=== PATIENT | female | born 1955 | race Caucasian/White ===

== ENCOUNTER → 2016-11-24 | Outpatient (CLI) | payer MEDICAID ==
[~2016-11-24] MED LIST: Gadobutrol 10 mMOL/10 ML SDV IVPUSH STA
--- NOTE | 2016-11-26 16:53 | MR ---
EXAM DATE: 11/24/16 PATIENT'S AGE: 61 Patient: JASON FLYNN Facility: [facility] Site . Site : 1955 Study: MRI-Head W/ and W/O Cont [id number]/28/2017 7:49:23 PM Ordering Physician: Bette Joseph Final Report: Indication: 61-year-old female. Multiple sclerosis. Technique: Multiplanar T1 weighted, multiplanar FLAIR, T2 axial, diffusion axial, ADC map axial, susceptibility weighted axial and 3 plane volumetric postcontrast T1 weighted images are acquired. Comparison: MRI April 09, 2016. Findings: There is no restricted diffusion. There is a small focus of susceptibility in the left lentiform nucleus. Ventricles and cortical sulci are mildly prominent. There are greater than 10 white matter foci of T2 prolongation in the cerebral hemispheres with juxta cortical, deep and periventricular lesions present. There is no pathologic signal within the septocallosal interface. Few foci of T2 prolongation are present in the nils. Cerebellar hemispheres are unremarkable. Cerebellar tonsils are normally situated. Optic chiasm and pituitary are normal. Paranasal and mastoid air cells are clear. Usual flow void is present in the [place]. Intraorbital tissues are normal. Impression: 1. No change. 2. Greater than 10 white matter foci of T2 prolongation within the cerebral hemispheres and brainstem. Pattern of signal abnormality is compatible with combination of demyelinating disease and age-related microvascular ischemic disease. Periventricular lesions with mild white matter T1 burden have features compatible with multiple sclerosis. 3. Mild atrophy without central atrophy or pathologic thinning of the corpus callosum. 4. Intracranial enhancement pattern is normal without evidence for active dilatation. 5. Focal susceptibility in the left basal ganglia is compatible with normal acquired benign mineralization. Dictated by Cristobal Alvarado MD @ Nov 26 2016 1:49PM Signed by: Cristobal Alvarado MD @11/26/2016 2:00:38 PM (Electronic Signature) Report Signed by Proxy and Original Signed Document filed in the Medical Record. MTDD
== END | disposition home or self-care (01) ==
LOC: MW.MRI 17:41
PROVIDERS: ATTEND Psychiatry & Neurology Neuromuscular Medicine
DX: G35 Multiple sclerosis (principal)
CPT/HCPCS: 36415; 70553; 82565; 84520; A9585

== ENCOUNTER 2016-12-21 13:25 | Emergency (ER) | payer MEDICAID ==
[2016-12-21] MEDS ORDERED: Ondansetron 4 MG/2 ML SDV IVPUSH ONE (13:39)
[2016-12-21] MEDS ORDERED: Sodium Chloride 0.9% 1,000 ML IV ONE (13:39)
[2016-12-21] MEDS ORDERED: SUMAtriptan 6 MG/0.5 ML SDV SUBCUT ONE (13:39)
[2016-12-21] MEDS ORDERED: Ketorolac 30 MG/ML SDV IVPUSH ONE (13:39)
[2016-12-21] MEDS ORDERED: LORazepam 2 MG/ML MDV IVPUSH ONE (13:41)
--- NOTE | 2016-12-21 13:41 | EDM.PDOC ---
ED HPI HEADACHE COMPLAINT - General Chief Complaint: Headache Stated Complaint: HEADACHE Time Seen by Provider: 12/21/16 13:33 Source of Information: Reports: Patient History Limitations: Reports: No limitations - History of Present Illness INITIAL COMMENTS - FREE TEXT/NARRATIVE: History of present illness: [61-year-old female coming in complaining of headache. Patient indicates she does report my as well as MS. Patient indicates her migraine frequency has increased to 3 times a week her neurologist Dr. Amos's awareness is wanting her to take a migraine diary and they're going to evaluate her to see if this is in fact an exacerbation of her MS as opposed to a migraine syndrome.] Review of systems: As per history of present illness and below otherwise all systems reviewed and negative. Past medical history: As per history of present illness and as reviewed below otherwise noncontributory. Surgical history: As per history of present illness and as reviewed below otherwise noncontributory. Social history: No reported history of drug or alcohol abuse. Family history: As per history of present illness and as reviewed below otherwise noncontributory. Physical exam: HEENT: Atraumatic, normocephalic, pupils reactive, negative for conjunctival pallor or scleral icterus, mucous membranes moist, throat clear, neck supple, nontender, trachea midline. Lungs: Clear to auscultation, breath sounds equal bilaterally, chest nontender. Heart: S1S2, regular, negative for clicks, rubs, or JVD. Abdomen: Soft, nondistended, nontender. Negative for masses or hepatosplenomegaly. Negative for costovertebral tenderness. Pelvis: Stable nontender. Genitourinary: Deferred. Rectal: Deferred. Extremities: Atraumatic, negative for cords or calf pain. Neurovascular unremarkable. Neuro: Awake, alert, oriented. Cranial nerves II through XII unremarkable. Cerebellum unremarkable. Motor and sensory unremarkable throughout. Exam nonfocal. Patient's global assessment was benign save for photophobia and clear level of discomfort Is some dark room placed on 2 L o2- medication given Diagnostics: [] Therapeutics: [IV, Zofran, Imitrex, Toradol, lorazepam] Impression: [Migraine] Plan: [Followup with Dr. Amos] Definitive disposition and diagnosis as appropriate pending reevaluation and review of above. - Related Data Allergies/ADRs: Allergies Allergy/AdvReac Type Severity Reaction Status Date / Time tetracycline Allergy Rash Verified 03/28/16 12:31 Home Meds: Home Meds Atenolol 50 mg PO DAILY 03/28/16 [History] Cholecalciferol (Vitamin D3) [Vitamin D3] 1,000 unit PO DAILY 03/28/16 [History] Citalopram Hydrobromide [Celexa] 40 mg PO DAILY 03/28/16 [History] ClonazePAM [KlonoPIN] 0.5 mg PO BEDTIME 03/28/16 [History] Docusate Sodium [Colace] 100 mg PO BID 03/28/16 [History] Estradiol 1 mg PO DAILY 03/28/16 [History] Glatiramer Acetate [Copaxone] 40 mg SQ .3 TIMES A WEEK 03/28/16 [History] Hydrocodone/Acetaminophen [Hydrocodon-Acetaminoph 7.5-325] 1 - 2 tab PO Q4H PRN 03/28/16 [History] Lisinopril 30 mg PO DAILY 03/28/16 [History] Melatonin/Pyridoxine HCl (B6) [Melatonin 3 mg Tablet] 1 each PO BEDTIME [History] Simvastatin [Zocor] 20 mg PO BEDTIME 03/28/16 [History] Solifenacin Succinate [Vesicare] 10 mg PO BID 03/28/16 [History] Past Medical History HEENT History: Reports: None Cardiovascular History: Reports: High cholesterol, Hypertension Respiratory History: Reports: None Genitourinary History: Reports: Other (see below) Other Genitourinary History: leaky bladder Neurological History: Reports: CVA, MS Psychiatric History: Reports: None Endocrine/Metabolic History: Reports: None Hematologic History: Reports: None Immunologic History: Reports: None Oncologic (Cancer) History: Reports: None Dermatologic History: Reports: None - Infectious Disease History Infectious Disease History: Reports: Chicken pox, Measles, Mumps - Past Surgical History Head Surgeries/Procedures: Reports: None GI Surgical History: Reports: Cholecystectomy Female Surgical History: Reports: Hysterectomy Social & Family History - Family History Family Medical History: Noncontributory - Tobacco Use Smoking Status *Q: Current Every Day Smoker Years of Tobacco use: 40 Packs/Tins Daily: 1 - Caffeine Use Caffeine Use: Reports: Coffee, Soda - Recreational Drug Use Recreational Drug Use: No ED ROS GENERAL - Review of Systems Review Of Systems: See Below (See history of present illness) - Physical Exam Exam: See Below (See history of present illness) Course - Vital Signs Last Recorded V/S: Last Vital Signs Temp 36.9 C 12/21/16 13:32 Pulse 70 12/21/16 13:32 Resp 20 12/21/16 13:32 BP 136/58 L 12/21/16 13:32 Pulse Ox 99 12/21/16 13:32 - Orders/Labs/Meds Meds: Medications Discontinued Medications Generic Name Dose Route Start Last Admin Trade Name Freq PRN Reason Stop Dose Admin Sodium Chloride 1,000 mls @ 999 mls/hr 12/21/16 13:39 12/21/16 13:50 Normal Saline IV 12/21/16 14:39 999 mls/hr STAT ONE Administration Ketorolac Tromethamine 30 mg 12/21/16 13:39 12/21/16 13:51 Toradol IVPUSH 12/21/16 13:40 30 mg ONETIME ONE Administration Lorazepam 2 mg 12/21/16 13:41 12/21/16 13:50 Ativan IVPUSH 12/21/16 13:42 2 mg ONETIME ONE Administration Ondansetron HCl 8 mg 12/21/16 13:39 12/21/16 13:51 Zofran IVPUSH 12/21/16 13:40 8 mg ONETIME ONE Administration Sumatriptan Succinate 6 mg 12/21/16 13:39 12/21/16 13:51 Imitrex SUBCUT 12/21/16 13:40 6 mg ONETIME ONE Administration Departure - Departure Time of Disposition: 14:58 Disposition: Home, Self-Care 01 Condition: good Clinical Impression: Migraine Forms: ED Department Discharge Additional Instructions: The following information is given to patients seen in the emergency department who are being discharged to home. This information is to outline your options for follow-up care. We provide all patients seen in our emergency department with a follow-up referral. The need for follow-up, as well as the timing and circumstances, are variable depending upon the specifics of your emergency department visit. If you don't have a primary care physician on staff, we will provide you with a referral. We always advise you to contact your personal physician following an emergency department visit to inform them of the circumstance of the visit and for follow-up with them and/or the need for any referrals to a consulting specialist. The emergency department will also refer you to a specialist when appropriate. This referral assures that you have the opportunity for follow-up care with a specialist. All of these measure are taken in an effort to provide you with optimal care, which includes your follow-up. Under all circumstances we always encourage you to contact your private physician who remains a resource for coordinating your care. When calling for follow-up care, please make the office aware that this follow-up is from your recent emergency room visit. If for any reason you are refused follow-up, please contact the [facility] Emergency Department at and asked to speak to the emergency department charge nurse. Take medication as directed Followup with urologist as Turned ED as needed as discussed
[2016-12-21 15:08] VITALS: BP 110/59
== END 2016-12-21 15:07 | disposition home or self-care (01) ==
LOC: MW.ED 13:25
DX: G43.909 Migraine, unspecified, not intractable, without status migrainosus (principal); E78.00 Pure hypercholesterolemia, unspecified; I10 Essential (primary) hypertension; F17.210 Nicotine dependence, cigarettes, uncomplicated; Z86.73 Personal history of transient ischemic attack (TIA), and cerebral infarction without residual deficits; Z79.899 Other long term (current) drug therapy; Z90.49 Acquired absence of other specified parts of digestive tract; Z90.710 Acquired absence of both cervix and uterus; Z88.1 Allergy status to other antibiotic agents
CPT/HCPCS: 96361; 96372; 96374; 96375; 99283; J1885; J2060; J2405; J3030; J7040; 99284

== ENCOUNTER 2017-01-18 14:13 | Emergency (ER) | payer MEDICAID ==
[2017-01-18] MEDS ORDERED: Ketorolac 30 MG/ML SDV IVPUSH ONE (15:21)
[2017-01-18] MEDS ORDERED: LORazepam 2 MG/ML MDV IVPUSH ONE (15:21)
[2017-01-18] MEDS ORDERED: Ondansetron 4 MG/2 ML SDV IVPUSH ONE (15:21)
[2017-01-18] MEDS ORDERED: Sodium Chloride 0.9% 1,000 ML IV ONE (15:21)
--- NOTE | 2017-01-18 15:21 | EDM.PDOC ---
ED HPI GENERAL MEDICAL PROBLEM - General Chief Complaint: Headache Stated Complaint: MIGRANE Time Seen by Provider: 01/18/17 15:10 Source of Information: Reports: Patient History Limitations: Reports: No Limitations - History of Present Illness INITIAL COMMENTS - FREE TEXT/NARRATIVE: History of present illness: [61-year-old female presenting with acute migraine. Patient indicates that this is consistent with her normal migraines it is not worse than her average migraine but that in fact she is out of her Imitrex and so the migraine has gotten out of control. Patient indicates when they do get this bad the only way to get them to calm down and/or resolved is to come to ED and have them be addressed by us.] Review of systems: As per history of present illness and below otherwise all systems reviewed and negative. Past medical history: As per history of present illness and as reviewed below otherwise noncontributory. Surgical history: As per history of present illness and as reviewed below otherwise noncontributory. Social history: No reported history of drug or alcohol abuse. Family history: As per history of present illness and as reviewed below otherwise noncontributory. Physical exam: HEENT: Atraumatic, normocephalic, pupils reactive, negative for conjunctival pallor or scleral icterus, mucous membranes moist, throat clear, neck supple, nontender, trachea midline. Lungs: Clear to auscultation, breath sounds equal bilaterally, chest nontender. Heart: S1S2, regular, negative for clicks, rubs, or JVD. Abdomen: Soft, nondistended, nontender. Negative for masses or hepatosplenomegaly. Negative for costovertebral tenderness. Pelvis: Stable nontender. Genitourinary: Deferred. Rectal: Deferred. Extremities: Atraumatic, negative for cords or calf pain. Neurovascular unremarkable. Neuro: Awake, alert, oriented. Cranial nerves II through XII unremarkable. Cerebellum unremarkable. Motor and sensory unremarkable throughout. Exam nonfocal. Global assessment is benign save some notable photophobia and/or guarding. Diagnostics: [] Therapeutics: [Migraine workup plus Imitrex subcutaneous] Impression: [migraine] Plan: [Followup with neurology] Definitive disposition and diagnosis as appropriate pending reevaluation and review of above. Headache behind right eye Pain Score (Numeric/FACES): 7 - Related Data Allergies Allergy/AdvReac Type Severity Reaction Status Date / Time tetracycline Allergy Rash Verified 01/18/17 14:30 Home Meds: Home Meds Atenolol 50 mg PO DAILY 03/28/16 [History] Cholecalciferol (Vitamin D3) [Vitamin D3] 1,000 unit PO DAILY 03/28/16 [History] Citalopram Hydrobromide [Celexa] 40 mg PO DAILY 03/28/16 [History] ClonazePAM [KlonoPIN] 0.5 mg PO BEDTIME 03/28/16 [History] Docusate Sodium [Colace] 100 mg PO BID 03/28/16 [History] Estradiol 1 mg PO DAILY 03/28/16 [History] Glatiramer Acetate [Copaxone] 40 mg SQ .3 TIMES A WEEK 03/28/16 [History] Hydrocodone/Acetaminophen [Hydrocodon-Acetaminoph 7.5-325] 1 - 2 tab PO Q4H PRN 03/28/16 [History] Lisinopril 30 mg PO DAILY 03/28/16 [History] Melatonin/Pyridoxine HCl (B6) [Melatonin 3 mg Tablet] 1 each PO BEDTIME [History] Simvastatin [Zocor] 20 mg PO BEDTIME 03/28/16 [History] Solifenacin Succinate [Vesicare] 10 mg PO BID 03/28/16 [History] Past Medical History HEENT History: Reports: Impaired Vision Cardiovascular History: Reports: High Cholesterol, Hypertension Respiratory History: Reports: None Genitourinary History: Reports: Other (See Below) Other Genitourinary History: leaky bladder Musculoskeletal History: Reports: Arthritis Neurological History: Reports: CVA, Migraines, MS Psychiatric History: Reports: None Endocrine/Metabolic History: Reports: None Hematologic History: Reports: None Immunologic History: Reports: None Oncologic (Cancer) History: Reports: None Dermatologic History: Reports: None - Infectious Disease History Infectious Disease History: Reports: Chicken Pox, Measles, Mumps - Past Surgical History Head Surgeries/Procedures: Reports: None GI Surgical History: Reports: Cholecystectomy Female Surgical History: Reports: Hysterectomy Social & Family History - Family History Family Medical History: Noncontributory - Tobacco Use Smoking Status *Q: Never Smoker Years of Tobacco use: 40 Packs/Tins Daily: 1 - Caffeine Use Caffeine Use: Reports: Coffee, Soda - Recreational Drug Use Recreational Drug Use: No ED ROS GENERAL - Review of Systems Review Of Systems: See Below (History of present illness) - Physical Exam Exam: See Below (History of present illness) Course - Vital Signs Last Recorded V/S: Last Vital Signs Temp 36.7 C 01/18/17 14:30 Pulse 74 01/18/17 14:30 Resp 16 01/18/17 14:30 BP 140/75 01/18/17 14:30 Pulse Ox 98 01/18/17 14:30 - Orders/Labs/Meds Orders: Active Orders 24 hr Category Date Time Status Cetirizine [ZyrTEC] Med 01/18/17 16:47 Once 10 mg PO ONETIME ONE Meds: Medications Discontinued Medications Generic Name Dose Route Start Last Admin Trade Name Jose Carlos PRN Reason Stop Dose Admin Sodium Chloride 1,000 mls @ 999 mls/hr 01/18/17 15:21 01/18/17 15:30 Normal Saline IV 01/18/17 16:21 999 mls/hr STAT ONE Administration Ketorolac Tromethamine 30 mg 01/18/17 15:21 01/18/17 15:31 Toradol IVPUSH 01/18/17 15:22 30 mg ONETIME ONE Administration Lorazepam 1 mg 01/18/17 15:21 01/18/17 15:30 Ativan IVPUSH 01/18/17 15:22 1 mg ONETIME ONE Administration Ondansetron HCl 8 mg 01/18/17 15:21 01/18/17 15:31 Zofran IVPUSH 01/18/17 15:22 8 mg ONETIME ONE Administration Sumatriptan Succinate 6 mg 01/18/17 15:23 01/18/17 15:36 Imitrex SUBCUT 01/18/17 15:24 6 mg ONETIME ONE Administration Departure - Departure Time of Disposition: 16:47 Disposition: Home, Self-Care 01 Condition: good Clinical Impression: Headache - Discharge Information Forms: ED Department Discharge Additional Instructions: The following information is given to patients seen in the emergency department who are being discharged to home. This information is to outline your options for follow-up care. We provide all patients seen in our emergency department with a follow-up referral. The need for follow-up, as well as the timing and circumstances, are variable depending upon the specifics of your emergency department visit. If you don't have a primary care physician on staff, we will provide you with a referral. We always advise you to contact your personal physician following an emergency department visit to inform them of the circumstance of the visit and for follow-up with them and/or the need for any referrals to a consulting specialist. The emergency department will also refer you to a specialist when appropriate. This referral assures that you have the opportunity for follow-up care with a specialist. All of these measure are taken in an effort to provide you with optimal care, which includes your follow-up. Under all circumstances we always encourage you to contact your private physician who remains a resource for coordinating your care. When calling for follow-up care, please make the office aware that this follow-up is from your recent emergency room visit. If for any reason you are refused follow-up, please contact the [facility] Emergency Department at and asked to speak to the emergency department charge nurse. Take medication as directed Be aware of mixed presentation of headaches so his best to achieve migraine control Return to ED as needed as discussed - My Orders Last 24 Hours: My Active Orders 01/18/17 16:47 Cetirizine [ZyrTEC] 10 mg PO ONETIME ONE - Assessment/Plan Last 24 Hours: My Active Orders 01/18/17 16:47 Cetirizine [ZyrTEC] 10 mg PO ONETIME ONE
[2017-01-18] MEDS ORDERED: SUMAtriptan 6 MG/0.5 ML SDV SUBCUT ONE (15:23)
[2017-01-18] MEDS ORDERED: Cetirizine 10 MG Tab PO ONE (16:47)
[2017-01-18 17:04] VITALS: BP 122/64
== END 2017-01-18 17:02 | disposition home or self-care (01) ==
LOC: MW.ED 14:13
DX: G43.909 Migraine, unspecified, not intractable, without status migrainosus (principal); E78.00 Pure hypercholesterolemia, unspecified; I10 Essential (primary) hypertension; Z88.1 Allergy status to other antibiotic agents; Z79.899 Other long term (current) drug therapy; Z86.73 Personal history of transient ischemic attack (TIA), and cerebral infarction without residual deficits; Z90.49 Acquired absence of other specified parts of digestive tract; Z90.710 Acquired absence of both cervix and uterus
CPT/HCPCS: 96361; 96372; 96374; 96375; 99283; A9270; J1885; J2060; J2405; J3030; J7040; 99284

== ENCOUNTER 2017-01-24 11:14 | Emergency (ER) | payer MEDICAID ==
--- NOTE | 2017-01-24 11:39 | EDM.PDOC ---
ED HPI GENERAL MEDICAL PROBLEM - General Chief Complaint: General Stated Complaint: SORES IN MOUTH Time Seen by Provider: 01/24/17 11:15 - History of Present Illness INITIAL COMMENTS - FREE TEXT/NARRATIVE: HISTORY AND PHYSICAL: History of present illness: Patient is a 61-year-old female presents with concern of gingival pain she is seen recently by her physician is being treated currently for this. No fever chills nausea vomiting or other complaints Review of systems: As per history of present illness and below otherwise all systems reviewed and negative. Past medical history: As per history of present illness and as reviewed below otherwise noncontributory. Surgical history: As per history of present illness and as reviewed below otherwise noncontributory. Social history: No reported history of drug or alcohol abuse. Family history: As per history of present illness and as reviewed below otherwise noncontributory. Physical exam: HEENT: Atraumatic, normocephalic, pupils reactive, negative for conjunctival pallor or scleral icterus, mucous membranes moist, throat clear, neck supple, nontender, trachea midline. Patient is a mild erythema and superficial ulcerations of her upper maxillary gingiva patient is edentulous Lungs: Clear to auscultation, breath sounds equal bilaterally, chest nontender. Heart: S1S2, regular, negative for clicks, rubs, or JVD. Abdomen: Soft, nondistended, nontender. Negative for masses or hepatosplenomegaly. Negative for costovertebral tenderness. Pelvis: Stable nontender. Genitourinary: Deferred. Rectal: Deferred. Extremities: Atraumatic, negative for cords or calf pain. Neurovascular unremarkable. Neuro: Awake, alert, oriented. Cranial nerves II through XII unremarkable. Cerebellum unremarkable. Motor and sensory unremarkable throughout. Exam nonfocal. Diagnostics: None Therapeutics: Lidocaine swish Impression: #1 gingivitis Definitive disposition and diagnosis as appropriate pending reevaluation and review of above. - Related Data Allergies Allergy/AdvReac Type Severity Reaction Status Date / Time tetracycline Allergy Rash Verified 01/18/17 14:30 Home Meds: Home Meds Atenolol 50 mg PO DAILY 03/28/16 [History] Cholecalciferol (Vitamin D3) [Vitamin D3] 1,000 unit PO DAILY 03/28/16 [History] Citalopram Hydrobromide [Celexa] 40 mg PO DAILY 03/28/16 [History] ClonazePAM [KlonoPIN] 0.5 mg PO BEDTIME 03/28/16 [History] Docusate Sodium [Colace] 100 mg PO BID 03/28/16 [History] Estradiol 1 mg PO DAILY 03/28/16 [History] Glatiramer Acetate [Copaxone] 40 mg SQ .3 TIMES A WEEK 03/28/16 [History] Hydrocodone/Acetaminophen [Hydrocodon-Acetaminoph 7.5-325] 1 - 2 tab PO Q4H PRN 03/28/16 [History] Lisinopril 30 mg PO DAILY 03/28/16 [History] Melatonin/Pyridoxine HCl (B6) [Melatonin 3 mg Tablet] 1 each PO BEDTIME [History] Simvastatin [Zocor] 20 mg PO BEDTIME 03/28/16 [History] Solifenacin Succinate [Vesicare] 10 mg PO BID 03/28/16 [History] Past Medical History HEENT History: Reports: Impaired Vision Cardiovascular History: Reports: High Cholesterol, Hypertension Respiratory History: Reports: None Genitourinary History: Reports: Other (See Below) Other Genitourinary History: leaky bladder Musculoskeletal History: Reports: Arthritis Neurological History: Reports: CVA, Migraines, MS Psychiatric History: Reports: None Endocrine/Metabolic History: Reports: None Hematologic History: Reports: None Immunologic History: Reports: None Oncologic (Cancer) History: Reports: None Dermatologic History: Reports: None - Infectious Disease History Infectious Disease History: Reports: Chicken Pox, Measles, Mumps - Past Surgical History Head Surgeries/Procedures: Reports: None GI Surgical History: Reports: Cholecystectomy Female Surgical History: Reports: Hysterectomy Social & Family History - Family History Family Medical History: Noncontributory - Tobacco Use Smoking Status *Q: Never Smoker Years of Tobacco use: 40 Packs/Tins Daily: 1 - Caffeine Use Caffeine Use: Reports: Coffee, Soda - Recreational Drug Use Recreational Drug Use: No ED ROS GENERAL - Review of Systems Review Of Systems: ROS reveals no pertinent complaints other than HPI. ED EXAM, GENERAL - Physical Exam Exam: See Below (See dictation) Departure - Departure Time of Disposition: 11:38 Disposition: Home, Self-Care 01 Condition: good Clinical Impression: Gingivitis - Discharge Information Forms: ED Department Discharge Additional Instructions: The following information is given to patients seen in the emergency department who are being discharged to home. This information is to outline your options for follow-up care. We provide all patients seen in our emergency department with a follow-up referral. The need for follow-up, as well as the timing and circumstances, are variable depending upon the specifics of your emergency department visit. If you don't have a primary care physician on staff, we will provide you with a referral. We always advise you to contact your personal physician following an emergency department visit to inform them of the circumstance of the visit and for follow-up with them and/or the need for any referrals to a consulting specialist. The emergency department will also refer you to a specialist when appropriate. This referral assures that you have the opportunity for followup care with a specialist. All of these measure are taken in an effort to provide you with optimal care, which includes your followup. Under all circumstances we always encourage you to contact your private physician who remains a resource for coordinating your care. When calling for followup care, please make the office aware that this follow-up is from your recent emergency room visit. If for any reason you are refused follow-up, please contact the [facility] emergency department at and asked to speak to the emergency department charge nurse. Current medication Magic mouthwash as directed push fluids follow primary medical doctor one to 2 days return as needed as discussed
[2017-01-24] MEDS ORDERED: LIDOCAINE 2% PO SCH ×3 (12:15)
[2017-01-24] MEDS ORDERED: NYSTATIN PO SCH ×3 (12:15)
[2017-01-24] MEDS ORDERED: DIPHENHYDRAMINE PO SCH ×3 (12:15)
[2017-01-24 13:09] VITALS: BP 108/65
== END 2017-01-24 12:00 | disposition home or self-care (01) ==
LOC: MW.ED 11:14
DX: K05.10 Chronic gingivitis, plaque induced (principal); I10 Essential (primary) hypertension; E78.00 Pure hypercholesterolemia, unspecified; Z88.1 Allergy status to other antibiotic agents; Z79.899 Other long term (current) drug therapy; Z90.49 Acquired absence of other specified parts of digestive tract; Z90.710 Acquired absence of both cervix and uterus
CPT/HCPCS: 99282; A9270; 99283